=== PATIENT | female | born 1995 | race Caucasian/White ===

== ENCOUNTER 2018-08-01 15:59 | Emergency (ER) | payer OTHER ==
[~2018-08-01] VITALS: Ht 157.5 cm; Wt 49.9 kg
[2018-08-01 15:59] VITALS: BP 121/73
--- NOTE | 2018-08-01 16:18 | NUR ---
JUDITH MELARA AT BEDSIDE FOR EVAL.
[2018-08-01] MEDS ORDERED: HYDROCODONE/APAP 5/325MG 1 EACH TABLET ONE (16:35)
[2018-08-01] MEDS: HYDROCODONE/APAP 5/325MG 1 EACH TABLET PO ONE (17:06)
--- NOTE | 2018-08-01 17:13 | NUR ---
DR HATFIELD AT BEDSIDE FOR EVAL.
== END 2018-08-01 17:34 | disposition home or self-care (01) ==
LOC: ER 16:05
DX: S02.81XA Fracture of other specified skull and facial bones, right side, initial encounter for closed fracture (principal); R51 Headache; W22.8XXA Striking against or struck by other objects, initial encounter; Y93.89 Activity, other specified; Y92.89 Other specified places as the place of occurrence of the external cause; Y99.8 Other external cause status
CPT/HCPCS: 70480-TC; A4606; Z7610